=== PATIENT | male | born 2000 | race Caucasian/White ===

== ENCOUNTER 2023-10-04 17:14 | Emergency (ER) | payer BC, SELFPAY ==
[2023-10-04 17:17] VITALS: BP 132/89; PULSE 85; TEMP 36.4; O2SAT 99; BMI 21.8
--- NOTE | 2023-10-04 17:34 | ED.DENTAL1 ---
HPI - Dental/Oral General Chief complaint: Dental/Oral Stated complaint: Dental Pain Time Seen by Provider: 10/04/23 17:23 Source: patient Mode of arrival: walk-in Limitations: no limitations History of Present Illness HPI Narrative: 22-year-old male presents to the emergency department complaint of dental pain. Locates to the left lower molar. Notes that the tooth is cracked. Pain has been persistent over the past couple days. Did have some pain and discomfort to the right wisdom tooth, but this tooth broke and fell off and has been pain-free since. Patient expresses worry about infection. Denies fever, chills. States Tylenol has not been relieving his pain. Quality: As above Severity: Moderate Timing: As above, constant, worsening Context: Normal setting and activity Modifying factors: As above Associated symptoms: None Related Data Previous Rx's ?Medication ?Instructions ?Recorded penicillin V potassium 500 mg 500 mg PO QID 10 days #40 tabs 10/04/23 tablet tramadol 50 mg tablet 50 mg PO Q8H PRN pain 3 days #7 10/04/23 tabs Allergies Allergy/AdvReac Type Severity Reaction Status Date / Time No Known Drug Allergies Allergy Verified 10/04/23 17:17 Review of Systems ROS Narrative CONST: Denies fever, chills HENT: +dental problem.? Denies congestion, ear pain, facial swelling, mouth sores, rhinorrhea EYES: Denies eye discharge, eye pain SKIN: Denies color change Exam Narrative Exam Narrative: Vital signs noted Nurses notes reviewed CONST: Nontoxic, well appearing, well nourished, in no distress.? No diaphoresis.?? HENT: normocephalic, atraumatic.? Normal hearing.? Normal appearing ext ears, canals, TM's.? No nasal discharge.? MOUTH/THROAT: (+) caries throughout of varying levels.? Tooth #17 is tender.? The posterior aspect of this tooth is broken away. Tooth #32 is worn down to the gums. No surrounding swelling, fluctuance.? No facial swelling, palpable abscess, trismus.? Patient maintaining own secretions.? Moist mucous membranes, no increased oropharyngeal erythema, edema, exudate.? No submandibular or submental tenderness.? No tenderness or elevation of the roof of the mouth. EYES: clear, no injections, discharge NECK: supple, no lymphadenopathy NEURO: A&Ox3 SKIN: warm, dry PSYCHIATRIC: normal mood and affect Constitutional Vital Signs, click to edit/add: Last Vital Signs Temp 97.5 F L 10/04/23 17:17 Pulse 85 10/04/23 17:17 Resp 16 10/04/23 17:17 BP 132/89 10/04/23 17:17 Pulse Ox 99 10/04/23 17:17 O2 Del Method Room Air 10/04/23 17:17 Course Vital Signs Vital signs: Vital Signs Temperature 97.5 F L 10/04/23 17:17 Pulse Rate 85 10/04/23 17:17 Respiratory Rate 16 10/04/23 17:17 Blood Pressure 132/89 10/04/23 17:17 Pulse Oximetry 99 10/04/23 17:17 Oxygen Delivery Method Room Air 10/04/23 17:17 Temperature 97.5 F L 10/04/23 17:17 Pulse Rate 85 10/04/23 17:17 Respiratory Rate 16 10/04/23 17:17 Blood Pressure 132/89 10/04/23 17:17 Pulse Oximetry 99 10/04/23 17:17 Oxygen Delivery Method Room Air 10/04/23 17:17 MDM - Dental/Oral MDM Narrative Medical decision making narrative: This is a pleasant 22-year-old male who presents to the emergency department with complaint of dental pain. Located to tooth #17. Has associated facial pain. Worried about infection. Patient notes tooth to a broken. Did have some pain discomfort to tooth #32, but this tooth fell out and he has been more comfortable since. Denies fever, facial swelling, difficulty swallowing. On arrival, afebrile, vital signs are stable. On exam, nontoxic, well-appearing patient in no distress. He has tenderness to tooth #17 and this tooth is broken and the posterior aspect of the tooth is missing. No tenderness over tooth #32. No facial swelling, palpable abscess, increased gingival inflammation, submental or submandibular swelling, discoloration, tenderness. Patient maintaining own secretions. Findings consistent with odontalgia, rule out dental infection Patient was given dental analgesia in the emergency department He was given reference numbers for clinics and outpatient dental facilities Disposition ? The patient was discharged. Plan: Patient will be discharged to home. Condition at time of disposition: stable He was given prescription for Pen-Vee K and limited supply of Ultram. Advised to follow up with primary provider. Advised to return for any worsening and/or development of new, concerning signs or symptoms PLEASE NOTE: Portions of the medical record may have been produced using electronic optical engineer and may contain errors with respect to translation of words which may not have been identified prior to finalization of the chart. Discharge Plan Discharge Stand Alone Forms: Work/School Release, Portal Instructions Chief Complaint: Dental/Oral Clinical Impression: Acute facial pain, Odontalgia Patient Disposition: Home, Self-Care Time of Disposition Decision: 17:41 Mode of Transportation: Private Vehicle Prescriptions / Home Meds: New penicillin V potassium 500 mg tablet 500 mg PO QID 10 Days Qty: 40 0RF tramadol 50 mg tablet 50 mg PO Q8H PRN (Reason: pain) 3 Days Qty: 7 0RF Print Language: Chinese Instructions: Toothache (ED) Additional Instructions: follow-up with one of the dental services on your discharge paperwork Referrals: Physician,Non-Staff, MD [Primary Care Provider] - 1 week Discharge Date/Time: 10/04/23 18:07
[2023-10-04] MEDS: BENZOCAINE 30 ML, lidocaine HCL 15 ML MM (17:58)
== END 2023-10-04 18:07 | disposition home or self-care (01) ==
PROVIDERS: Emergency Provider Emergency Medicine
DX: G50.1 Atypical facial pain (principal); K08.89 Other specified disorders of teeth and supporting structures
CPT/HCPCS: 99283

== ENCOUNTER 2024-04-20 20:06 | Emergency (ER) | payer SELFPAY ==
[2024-04-20 20:12] VITALS: BP 122/73; PULSE 73; TEMP 36.7; O2SAT 100; BMI 22.5
--- NOTE | 2024-04-20 20:23 | ED_ITS ---
HPI - URI/Sore Throat General Chief Complaint: Upper Respiratory Infection Stated Complaint: sinus symptoms, hurts to breath Time Seen by Provider: 04/20/24 20:12 Source: patient History of Present Illness HPI Narrative: 23-year-old male presents for cough and congestion. He has been sick for few days and has been coughing up some green phlegm. His boss at work has COVID and he is concerned about having COVID. He smokes but does not have asthma. No fever or hemoptysis. Related Data Previous Rx's ?Medication ?Instructions ?Recorded penicillin V potassium 500 mg 500 mg PO QID 10 days #40 tabs 10/04/23 tablet tramadol 50 mg tablet 50 mg PO Q8H PRN pain 3 days #7 10/04/23 tabs penicillin V potassium 250 mg 250 mg PO QID 10 days #40 tabs 04/20/24 tablet Allergies Allergy/AdvReac Type Severity Reaction Status Date / Time No Known Drug Allergies Allergy Verified 10/04/23 17:17 Review of Systems 2 ROS Narrative A ten point review of systems is negative except as noted above. PFSH PFSH Social History Little interest or pleasure in doing things: not at all Feeling down, depressed, or hopeless: not at all Exam Narrative Exam Narrative: Nurses note and vital signs reviewed and patient is not hypoxic. General: The patient appears well and in no apparent distress. Patient is resting comfortably on cart. Skin: Warm, dry, no pallor noted. There is no rash noted. Head: Normocephalic, atraumatic Eye: Normal conjunctiva, no drainage Ears, Nose, Mouth, and Throat: oral mucosa is moist. Nares patent. Both TMs and both external canals are normal. Posterior pharynx nonerythematous, no exudate. Cardiovascular: Regular Rate and Rhythm Respiratory: Patient is in no distress, no accessory muscle use, lungs are clear to auscultation, no wheezing, rales or rhonchi Back: non-tender GI: Soft and nontender Musculoskeletal: The patient has no evidence of calf tenderness, no pitting edema, symmetrical pulses noted bilaterally Neurological: A&O, normal speech Psychiatric: Cooperative Constitutional Vital Signs, click to edit/add: Last Vital Signs Temp 98.0 F 04/20/24 20:12 Pulse 73 04/20/24 20:12 Resp 18 04/20/24 20:12 BP 122/73 04/20/24 20:12 Pulse Ox 100 04/20/24 20:12 O2 Del Method Room Air 04/20/24 20:12 Course Vital Signs Vital signs: Vital Signs Temperature 98.0 F 04/20/24 20:12 Pulse Rate 73 04/20/24 20:12 Respiratory Rate 18 04/20/24 20:12 Blood Pressure 122/73 04/20/24 20:12 Pulse Oximetry 100 04/20/24 20:12 Oxygen Delivery Method Room Air 04/20/24 20:12 Temperature 98.0 F 04/20/24 20:12 Pulse Rate 73 04/20/24 20:12 Respiratory Rate 18 04/20/24 20:12 Blood Pressure 122/73 04/20/24 20:12 Pulse Oximetry 100 04/20/24 20:12 Oxygen Delivery Method Room Air 04/20/24 20:12 MDM - URI/Sore Throat MDM Narrative Medical decision making narrative: COVID test is positive. He also has dental pain and is requesting a prescription for an antibiotic. He is prescribed penicillin and he is going to call his established dentist in a few days when the office is open. Treatment diagnosis and follow-up were discussed with the patient. Differential Diagnosis Differential diagnosis: Likely upper respiratory infection, sinusitis, viral infection, influenza and other (COVID) Lab Data Attestation: I reviewed the patient's lab results. Labs: Lab Results 04/20/24 Range/Units 20:22 Influenza Type A Ag Negative Influenza Type B Ag Negative SARS-CoV-2 Ag (CV2AG) Positive A (NEGATIVE) Discharge Plan Discharge Chief Complaint: Upper Respiratory Infection Clinical Impression: COVID-19, Dental caries Patient Disposition: Home, Self-Care Time of Disposition Decision: 20:55 Condition: Good Mode of Transportation: Private Vehicle Prescriptions / Home Meds: New penicillin V potassium 250 mg tablet 250 mg PO QID 10 Days Qty: 40 0RF No Action penicillin V potassium 500 mg tablet 500 mg PO QID 10 Days Qty: 40 0RF tramadol 50 mg tablet 50 mg PO Q8H PRN (Reason: pain) 3 Days Qty: 7 0RF Print Language: Polish Instructions: COVID-19 (Coronavirus Disease 2019) (ED), Face Coverings (Masks) and COVID-19 (ED), How to Recover from COVID-19 at Home (ED) Referrals: Physician,Non-Staff, MD [Primary Care Provider] - 1 week
[2024-04-20 20:46] LABS: Influenza Virus A Antigen Negative; Influenza Virus B Antigen Negative; Internal Control Within Normal Limits; SARS-CoV-2 Ag POSITIVE (NEGATIVE)
== END 2024-04-20 21:10 | disposition home or self-care (01) ==
PROVIDERS: Emergency Provider Emergency Medicine
DX: U07.1 COVID-19 (principal); K02.9 Dental caries, unspecified; F17.200 Nicotine dependence, unspecified, uncomplicated
CPT/HCPCS: 87804; 87811; 99284

== ENCOUNTER 2024-08-27 20:55 | Emergency (ER) | payer SELFPAY ==
[2024-08-27 21:11] VITALS: BP 134/90; PULSE 95; TEMP 37.1; O2SAT 99; BMI 21.7
--- NOTE | 2024-08-27 21:43 | ED.URI1 ---
HPI - URI/Sore Throat General Chief Complaint: Upper Respiratory Infection Stated Complaint: congestion Time Seen by Provider: 08/27/24 21:32 Limitations: no limitations History of Present Illness HPI Narrative: Patient is a 23-year-old male who presents to the emergency department for a 5-day history of upper respiratory symptoms. He reports temperatures as high as 101.0 Fahrenheit at the beginning of the course of his illness. He states he has had some phlegm production with coughing, he reports most of his discomfort is his nasal congestion. He reports it makes it hard for him to breathe through his nose. Significant other at the bedside is also sick. He reports some diarrhea. He has been using [id number]-[id number] cough medications without improvement. Related Data Previous Rx's ?Medication ?Instructions ?Recorded lgwmovpqfopspdn-uyafrpbczcpvdeu-FT 10 ml PO Q6H PRN cold symptoms 08/27/24 2 mg-30 mg-10 mg/5 mL oral syrup #200 mL (Bromfed DM) methylprednisolone 4 mg tablets in See Rx Instructions .Route 08/27/24 a dose pack (Medrol ([place])) .COMPLEX #21 ea ondansetron 4 mg disintegrating 4 mg PO Q6H PRN nausea and 08/27/24 tablet vomiting #12 tabs Allergies Allergy/AdvReac Type Severity Reaction Status Date / Time latex Allergy unknown Verified 08/27/24 21:14 Review of Systems ROS Constitutional Reports: fever; Denies: chills Ears, nose, mouth, and throat Reports: nasal congestion; Denies: throat pain Cardiovascular Denies: chest pain Respiratory Reports: cough; Denies: shortness of breath Gastrointestinal Reports: nausea, vomiting and diarrhea Musculoskeletal Denies: back pain Integumentary/Breast Denies: rash Neurological Denies: numbness in extremities or weakness in extremities Hematologic/Lymphatic Denies: easy bruising or easy bleeding PFSH PFS Social History Little interest or pleasure in doing things: not at all Feeling down, depressed, or hopeless: not at all Exam Narrative Exam Narrative: Gen.: Awake, alert, in no distress Head: Normocephalic, atraumatic ENT: Moist mucous membranes, bilateral TMs are fluid-filled, minimally injected. No pharyngeal erythema. Clear speech. Uvula midline. Respiratory: No respiratory distress, lungs clear bilaterally, no coughing noted. No wheezing or rhonchi Cardio: Regular rate and rhythm Extremities: Moves extremities equally Psych: Normal mood and affect Neuro: No focal neuro deficit Skin: Warm, dry, intact Constitutional Vital Signs, click to edit/add: Last Vital Signs Temp 98.7 F 08/27/24 21:11 Pulse 95 H 08/27/24 21:11 Resp 18 08/27/24 21:11 BP 134/90 08/27/24 21:11 Pulse Ox 99 08/27/24 21:11 O2 Del Method Room Air 08/27/24 21:11 Course Vital Signs Vital signs: Vital Signs Temperature 98.7 F 08/27/24 21:11 Pulse Rate 95 H 08/27/24 21:11 Respiratory Rate 18 08/27/24 21:11 Blood Pressure 134/90 08/27/24 21:11 Pulse Oximetry 99 08/27/24 21:11 Oxygen Delivery Method Room Air 08/27/24 21:11 Temperature 98.7 F 08/27/24 21:11 Pulse Rate 95 H 08/27/24 21:11 Respiratory Rate 18 08/27/24 21:11 Blood Pressure 134/90 08/27/24 21:11 Pulse Oximetry 99 08/27/24 21:11 Oxygen Delivery Method Room Air 08/27/24 21:11 MDM - URI/Sore Throat MDM Narrative Medical decision making narrative: Swabs are negative for COVID, influenza, strep and RSV. Patient treated with Decadron in the ER and will be sent home on a Medrol Dosepak, Bromfed-DM, Zofran. Follow-up with PCP and return to the ER if symptoms change or worsen. SUPERVISED APC VISIT, PHYSICIAN ATTESTATION: Based on the medical record the care appears appropriate. ? Medical Records Attestation: I reviewed the patient's medical records. Lab Data Attestation: I reviewed the patient's lab results. Labs: Lab Results 08/27/24 Range/Units 21:20 Influenza Type A Ag Negative Influenza Type B Ag Negative RSV Antigen Not detected (NOT DETECTE) SARS-CoV-2 Ag (CV2AG) Negative (NEGATIVE) Streptococcus Screen Negative Discharge Plan Discharge Chief Complaint: Upper Respiratory Infection Clinical Impression: Upper respiratory infection Patient Disposition: Home, Self-Care Time of Disposition Decision: 22:01 Condition: Good Prescriptions / Home Meds: New methylprednisolone [Medrol ([place])] 4 mg tablets,dose pack See Rx Instructions .ROUTE .COMPLEX Qty: 21 0RF Rx Instructions: Taper as directed adurkzicgnobjdf-vjzwhcfyd-QT [Bromfed DM] 2-30-10 mg/5 mL syrup 10 ml PO Q6H PRN (Reason: cold symptoms) Qty: 200 0RF ondansetron 4 mg tablet,disintegrating 4 mg PO Q6H PRN (Reason: nausea and vomiting) Qty: 12 0RF Print Language: American Instructions: Upper Respiratory Infection (ED) Referrals: Physician,Non-Staff, MD [Primary Care Provider] - 1 week Discharge Date/Time: 08/27/24 22:28
[2024-08-27 21:48] LABS: Internal Control Within Normal Limits; Strep A Antigen Screen Negative
[2024-08-27 21:58] LABS: Influenza Virus A Antigen Negative; Influenza Virus B Antigen Negative; Internal Control Within Normal Limits; Respiratory Syncytial Virus Not Detected (NOT DETECTE); SARS-CoV-2 Ag NEGATIVE (NEGATIVE)
[2024-08-27] MEDS: DEXAMETHASONE SOD PHOS 10 MG/ML VIAL PO (22:19)
== END 2024-08-27 22:28 | disposition home or self-care (01) ==
PROVIDERS: Emergency Provider Emergency Medicine
DX: J06.9 Acute upper respiratory infection, unspecified (principal)
CPT/HCPCS: 87070; 87420; 87804; 87811; 87880; 99285; J1100